=== PATIENT | male | born 1995 | race Caucasian/White ===

== ENCOUNTER → 2016-09-06 | Outpatient (CLI) | payer BC ==
[~2016-09-06] MED LIST: CALC0.2510 PO; KPH PO; MAGNESIUM PO; MULT-1030 PO; OYST500T47 PO
[2016-09-06 14:07] LABS: PHOSPHORUS 1.2 mg/dl (2.5-4.9)
== END | disposition home or self-care (01) ==
LOC: C.LAB1850 11:42
PROVIDERS: ATTEND Internal Medicine Endocrinology, Diabetes & Metabolism
DX: E83.31 Familial hypophosphatemia (principal)

== ENCOUNTER 2016-09-23 16:26 | Emergency (ER) | payer BC ==
[~2016-09-23] VITALS: Ht 170.2 cm; Wt 71.9 kg
[2016-09-23 16:35] VITALS: TEMP 36.4; Ht 170.2 cm; Wt 71.9 kg
[2016-09-23] MEDS ORDERED: SODIUM CHLORIDE 0.9% 1000ML 1,000 ML IV ONE (16:48)
[2016-09-23] MEDS ORDERED: SODIUM CHLORIDE 0.9% 1000ML 1,000 ML IV STA (16:48)
[2016-09-23] MEDS ORDERED: CALC0.2510 PO (16:58)
[2016-09-23] MEDS ORDERED: MULT-1030 PO (16:58)
[2016-09-23] MEDS ORDERED: KPH PO (16:58)
--- NOTE | 2016-09-23 17:00 | EMERGENCY ROOM VISIT NOTE ---
History Report prepared by Lisandro: Julia Vale Under the Supervision of: Dr. Steve Mansfield M.D. First contact with patient: 16:41 Chief Complaint: PALPITATIONS Stated Complaint: HEART PALPATATIONS, ABD PAIN History of Present Illness The patient is a 21 year old male who presents to the Emergency Room with complaints of worsening palpitations that started 2-3 weeks ago. The patient states that over the last couple days, the palpitations have been waking him up from sleep at night, which is what caused him to come into the ED today. He states that he woke up this morning with the palpitations along with chest discomfort. He was also experiencing abdominal pain this morning along with an episode of diarrhea. The abdominal pain subsided, but then he experienced an episode of yellow mucous in his stool and the abdominal pain returned. He states that the abdominal pain radiated into his chest and left shoulder. He is also experiencing left arm numbness and tingling as well as pain in his left wrist. He states that nothing makes the pain better or worse.The patient states that the left left chest pain, left arm numbness, left shoulder pain, and left wrist pain started 2-3 weeks ago and they all happen intermittently. He has seen cardiology for his symptoms and they did an EKG. They also setup an echocardiogram for the patient as well as a Holter monitor, but he states that his symptoms resolved so he cancelled the appointment. When the symptoms came back, he rescheduled the appointment and they recommended scheduling an appointment with GI because they suspected that his symptoms may be related to the gastroenteritis that the patient experienced about one month ago. He states that he also experiences some shortness of breath when the palpitations wake him up in the middle of the night, which resolves in 15-20 minutes if he gets up and walks around. 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 The patient states that he had serotonin syndrome in 2011 secondary to medications. He states that they ended up "pumping out his system." The patient adds that he was seen at [facility] in July for a caffeine overdose due to drinking too many energy drinks and pre- workout. He states that they "pumped his system" then also. He has decreased his caffeine intake since that event. He denies any recent street drug use. He also denies any recent trauma or injury. He adds that he recently took Kratom, which is a plant from [place], for pain relief but he stopped taking it about one month ago. The patient's girlfriend adds that the patient was recently diagnosed with hyperparathyroidism. He was started on Calcitrol to try to bring his levels down. The patient states that his sister had a UT at 30 and he has a family history of an artery disease and cancer. Source of History: patient, spouse/significant other (girlfriend) Onset: 2-3 weeks ago Position: chest Quality: other (palpitations) Timing: worsening Associated Symptoms: + SOB, + abdominal pain, + chest pain, + numbness ( left arm) Note: left shoulder and wrist pain Review of Systems See HPI for pertinent positives & negatives. A total of 10 systems reviewed and were otherwise negative. 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 Old medical records were reviewed. Nurse's notes were reviewed and I agree with. Family History Cancer Heart disease Social History Smoking Status: Former Smoker Drug Use: none Housing Status: lives with significant other Occupation Status: employed Current/Historical Medications Scheduled Calcitriol (Rocaltrol Cap), 0.25 MCG PO DAILY Multiple Vitamins W/ Minerals (Centrum Men), 1 TAB PO DAILY Potassium Phosphate Monobasic (K-Phos), 500 MG PO QID Allergies Coded Allergies: No Known Allergies (Unverified , 09/23/16) Physical Exam Vital Signs Date Time Temp Pulse Resp B/P Pulse Ox O2 Delivery O2 Flow Rate FiO2 09/23/16 18:53 72 18 109/65 98 Room Air 09/23/16 18:01 69 13 115/58 99 Room Air 09/23/16 17:25 98 Room Air 09/23/16 17:01 73 09/23/16 16:35 36.4 87 18 130/80 97 Room Air Physical Exam General: Well developed well nourished non-ill appearing young male in no acute distress, breathing comfortably on room air. Normal speech HEENT: Normal cephalic atraumatic. Pupils are equal round and reactive to light. Extraocular movements are intact. Oropharynx is pink with moist mucous membranes. No swelling of the mouth lips or tongue. Neck: Supple with a midline trachea. No meningeal signs or stiffness, no JVD or bruits. No Stridor. Chest: Mildly tender in left lower chest. Clear to auscultation bilaterally. No wheezes or rhonchi. No increased work of breathing. Heart: regular rate and rhythm. Abdomen: Soft mildly tender in left upper abdomen, nondistended without rebound guarding or rigidity. Extremities: No cyanosis clubbing or edema. No calf tenderness or assymetry Spine/Back. Non tender to palpation. No CVA tenderness Skin: Good turgor without rashes. Neurologic exam: Cranial nerves two through 12 are intact. Motor and sensation are intact and symmetrical throughout. Medical Decision & Procedures ER Provider Diagnostic Interpretation: X-ray results as stated below per interpretation by me and the radiologist: CHEST ONE VIEW PORTABLE FINDINGS: Mild pulmonary hyperaeration. Subtle nonspecific interstitial prominence. No focal infiltrate. Diaphragms smooth. No evidence for cardiac enlargement. IMPRESSION: Mild pulmonary hyperaeration. Subtle interstitial prominence with no focal infiltrate. Electronically signed by: Ronen Beltran M.D. 09/23/2016 5:13 PM Dictated Date/Time: 09/23/2016 5:12 PM Laboratory Results 09/23/16 17:13 Red Blood Count 5.40, Mean Corpuscular Volume 85.2, Mean Corpuscular Hemoglobin 30.0, Mean Corpuscular Hemoglobin Concent 35.2, Mean Platelet Volume 9.3, Neutrophils (%) (Auto) 65.0, Lymphocytes (%) (Auto) 25.0, Monocytes (%) (Auto) 8.7, Eosinophils (%) (Auto) 1.1, Basophils (%) (Auto) 0.2, Neutrophils # (Auto) 3.68, Lymphocytes # (Auto) 1.41, Monocytes # (Auto) 0.49, Eosinophils # (Auto) 0.06, Basophils # (Auto) 0.01 09/23/16 17:13 Test 09/23/16 17:13 09/23/16 17:22 White Blood Count 5.65 K/uL (4.8-10.8) Red Blood Count 5.40 M/uL (4.7-6.1) Hemoglobin 16.2 g/dL (14.0-18.0) Hematocrit 46.0 % (42-52) Mean Corpuscular Volume 85.2 fL (80-100) Mean Corpuscular Hemoglobin 30.0 pg (25-34) Mean Corpuscular Hemoglobin Concent 35.2 g/dl (32-36) Platelet Count 217 K/uL (130-400) Mean Platelet Volume 9.3 fL (7.4-10.4) Neutrophils (%) (Auto) 65.0 % Lymphocytes (%) (Auto) 25.0 % Monocytes (%) (Auto) 8.7 % Eosinophils (%) (Auto) 1.1 % Basophils (%) (Auto) 0.2 % Neutrophils # (Auto) 3.68 K/uL (1.4-6.5) Lymphocytes # (Auto) 1.41 K/uL (1.2-3.4) Monocytes # (Auto) 0.49 K/uL (0.11-0.59) Eosinophils # (Auto) 0.06 K/uL (0-0.5) Basophils # (Auto) 0.01 K/uL (0-0.2) RDW Standard Deviation 38.7 fL (36.4-46.3) RDW Coefficient of Variation 12.5 % (11.5-14.5) Immature Granulocyte % (Auto) 0.0 % Immature Granulocyte # (Auto) 0.00 K/uL (0.00-0.02) Anion Gap 7.0 mmol/L (3-11) Est Creatinine Clear Calc Drug Dose 170.5 ml/min Estimated GFR () > 150.0 Estimated GFR (Non- 138.9 BUN/Creatinine Ratio 19.3 (10-20) Calcium Level 9.5 mg/dl (8.5-10.1) Phosphorus Level 1.2 mg/dl (2.5-4.9) Magnesium Level 2.1 mg/dl (1.8-2.4) Total Bilirubin 0.6 mg/dl (0.2-1) Direct Bilirubin 0.1 mg/dl (0-0.2) Aspartate Amino Transf (AST/SGOT) 13 U/L (15-37) Alanine Aminotransferase (ALT/SGPT) 25 U/L (12-78) Alkaline Phosphatase 242 U/L (45-117) Total Creatine Kinase 104 U/L (39-308) Creatine Kinase MB 0.6 ng/ml (0.5-3.6) Creatine Kinase MB Ratio 0.6 (0-3.0) Total Protein 7.2 gm/dl (6.4-8.2) Albumin 4.3 gm/dl (3.4-5.0) Lipase 147 U/L (73-393) Bedside D-Dimer 91 ng/mlFEU (0-450) Bedside Troponin I 0.000 ng/ml (0-0.045) Laboratory studies as stated above per my review. Medications Administered Medications (Trade) Dose Ordered Sig/Mayuri Route Start Time Stop Time Status Last Admin Dose Admin Sodium Chloride 1,000 ml @ 999 mls/hr Q1H1M STAT IV 09/23/16 16:48 09/23/16 17:48 DC 09/23/16 17:22 999 MLS/HR Sodium Chloride (Nss 1000ml) 1,000 ml @ 150 mls/hr Q6H40M ONCE IV 09/23/16 16:48 09/23/16 23:27 09/23/16 18:04 150 MLS/HR ECG Indication: chest pain Rate (beats per minute): 69 Rhythm: normal sinus (with SA) Findings: no acute ischemic change, other (normal intervals) Comparison ECG Date: no prior available Change: Repeat EKG: normal sinus rhythm, rate of 67, no acute ischemic changes, no ectopy, no change from first EKG on 09/23/2016 ED Course 1642: Past medical records reviewed. The patient was evaluated in room C10, and a complete history and physical examination were performed. 1648: Sodium Chloride 1000 ml @ 150 mls/hr IV, Sodium Chloride 1000 ml @ 999 mls /hr IV 1744: I reassessed the patient. He is resting comfortably. 183: Discussed patient's case with Dr. Adam - Endocrinology. He recommending telling the patient to increase his phosphorus and he will recheck it in a week. 1844: I reassessed the patient and updated him on my conversation with Dr. Adam. 1908: Upon reevaluation, the patient is doing well. I discussed the results and treatment plan with the patient and his girlfriend. They verbalized agreement of the treatment plan. The patient was discharged home. Medical Decision Differentials include, but are not limited to; acute coronary syndrome, arrhythmia, PE, infection, pneumothorax, electrolyte or metabolic abnormality. This patient comes in complaining of chest pain. He also has a genetic metabolic disorder. IV access was established and he was hydrated with IV normal saline. EKG was obtained which does not show acute coronary syndrome or arrhythmia. Chest x-ray was also obtained as well as multiple blood work and electrolytes. He was reassessed frequently. He has remained stable. A second EKG shows no change when compared to EKG #1 and there are no ischemic changes. His chest x-ray was unremarkable and he has no evidence to suggest congestive heart failure, pneumonia, or pneumothorax. He has no acute electrolyte or metabolic abnormalities was with exception of a low phosphorus of 1.2, this is baseline compared to his previous about a month ago. I did discuss with Dr. Adam, his sales representative meats, he recommended that he increase his potassium phosphate from 500 mg 4 times a day to 1000 mg 4 times a day and have this rechecked in 1 week. Talking to the patient has girlfriend, he's had these symptoms for several weeks and is supposed to be seen by [employer] this coming week as well as his regular doctor this coming week. I encouraged him to keep these appointments. I think his symptoms are unlikely related to his low phosphorus acutely. I encouraged him to return to ER if: increasing pain, shortness of breath, worsening of symptoms, any new problems concerns. He was happy with plan and discharged to home. Consults Time Called: 1829 Consulting Physician: Dr. Adam - Endocrinology Returned Call: [phone] Discussed patient's case with Dr. Adam - Endocrinology. He recommending telling the patient to increase his phosphorus and he will recheck it in a week. Impression Primary Impression: Left sided chest pain Additional Impression: Hypophosphatemia Scribe Attestation The scribe's documentation has been prepared under my direction and personally reviewed by me in its entirety. I confirm that the note above accurately reflects all work, treatment, procedures, and medical decision making performed by me. Departure Information Dispostion Home / Self-Care Referrals No Doctor, Assigned (PCP) Forms HOME CARE DOCUMENTATION FORM, IMPORTANT VISIT INFORMATION, WORK / SCHOOL INSTRUCTIONS Patient Instructions My [facility] [employer] Additional Instructions Rest Drink plenty of fluids Increase your potassium phosphate from 500 mg 4 times a day to 1000 mg 4 times a day Have your blood work rechecked in 1 week for a potassium, phosphorus, calcium Return if: increasing pain, worsening of symptoms, fever or chills, shortness of breath, any new problems or concerns Keep your appointment with your regular doctor and your [employer] this week Problem Qualifiers
--- NOTE | 2016-09-23 17:14 | DIAGNOSTIC IMAGING REPORT ---
CHEST ONE VIEW PORTABLE CLINICAL HISTORY: CHEST PAIN dyspnea COMPARISON STUDY: No previous studies for comparison. FINDINGS: Mild pulmonary hyperaeration. Subtle nonspecific interstitial prominence. No focal infiltrate. Diaphragms smooth. No evidence for cardiac enlargement. IMPRESSION: Mild pulmonary hyperaeration. Subtle interstitial prominence with no focal infiltrate. Electronically signed by: Ronen Beltran M.D. 09/23/2016 5:13 PM Dictated Date/Time: 09/23/2016 5:12 PM
[2016-09-23 17:25] LABS: BASO % 0.2 %; BASO ABS # 0.01 K/uL (0-0.2); COMPLETE YES; EOS % 1.1 %; LYMPH ABS # 1.41 K/uL (1.2-3.4); MEAN CELL VOLUME 85.2 fL (80-100); MEAN CORPUSCULAR HGB CONC 35.2 g/dl (32-36); MEAN PLATELET VOLUME 9.3 fL (7.4-10.4); MONO % 8.7 %; PLATELET COUNT 217 K/uL (130-400); WHITE BLOOD COUNT 5.65 K/uL (4.8-10.8)
[2016-09-23 17:42] LABS: ALT/SGPT 25 U/L (12-78); AST/SGOT 13 U/L (15-37); BLOOD UREA NITROGEN 12 mg/dl (7-18); BUN/CREATININE RATIO 19.3 (10-20); CALCIUM 9.5 mg/dl (8.5-10.1); CARBON DIOXIDE 25 mmol/L (21-32); CHLORIDE 111 mmol/L (98-107); CREATININE 0.63 mg/dl (0.60-1.40); GLUCOSE 92 mg/dl (70-99); MAGNESIUM 2.1 mg/dl (1.8-2.4); SODIUM 143 mmol/L (136-145)
[2016-09-23 18:03] LABS: ALKALINE PHOSPHATASE 242 U/L (45-117); CKMB/CK RATIO 0.6 (0-3.0); PHOSPHORUS 1.2 mg/dl (2.5-4.9)
[2016-09-23 18:53] VITALS: BP 109/65; PULSE 72; O2SAT 98
== END 2016-09-23 19:53 | disposition home or self-care (01) ==
LOC: C.EDB 16:28 → C.EDC 19:53
DX: R07.9 Chest pain, unspecified (principal); E83.39 Other disorders of phosphorus metabolism; Z82.49 Family history of ischemic heart disease and other diseases of the circulatory system; Z87.891 Personal history of nicotine dependence; Z80.9 Family history of malignant neoplasm, unspecified; Z79.899 Other long term (current) drug therapy

== ENCOUNTER 2017-03-23 13:50 | Inpatient (IN) | payer BC ==
[~2017-03-23] VITALS: Ht 167.6 cm; Wt 69.5 kg
[~2017-03-23 13:50] MED LIST changes: -MAGNESIUM PO; -OYST500T47 PO
[2017-03-23 14:23] LABS: BASO % 0.1 %; BASO ABS # 0.01 K/uL (0-0.2); COMPLETE YES; EOS % 0.4 %; HEMATOCRIT 44.2 % (42-52); IG% 0.3 %; LYMPH % 29.2 %; LYMPH ABS # 2.29 K/uL (1.2-3.4); MEAN CELL VOLUME 87.4 fL (80-100); MEAN CORPUSCULAR HEMOGLOBIN 30.2 pg (25-34); MEAN CORPUSCULAR HGB CONC 34.6 g/dl (32-36); MEAN PLATELET VOLUME 9.5 fL (7.4-10.4); MONO % 9.2 %; NEUT % 60.8 %; PLATELET COUNT 169 K/uL (130-400); RED BLOOD COUNT 5.06 M/uL (4.7-6.1); WHITE BLOOD COUNT 7.83 K/uL (4.8-10.8)
[2017-03-23 14:24] LABS: ISTAT CREATININE 0.7 mg/dl (0.6-1.3); ISTAT IONIZED CALCIUM 0.89 mmol/l (1.12-1.32)
[2017-03-23] MEDS ORDERED: CALCIUM GLUCONATE 10% 10 ML VIAL IV STA (14:29)
[2017-03-23 14:41] LABS: ALT/SGPT 23 U/L (12-78); AST/SGOT 16 U/L (15-37); BLOOD UREA NITROGEN 10 mg/dl (7-18); BUN/CREATININE RATIO 12.3 (10-20); CARBON DIOXIDE 31 mmol/L (21-32); CHLORIDE 103 mmol/L (98-107); CREATININE 0.82 mg/dl (0.60-1.40); GLUCOSE 86 mg/dl (70-99); INR 1.1 (0.9-1.1); MAGNESIUM 1.5 mg/dl (1.8-2.4); PARTIAL THROMBOPLASTIN RATIO 1.1; POTASSIUM 3.2 mmol/L (3.5-5.1); SODIUM 141 mmol/L (136-145)
[2017-03-23] MEDS ORDERED: MAGNESIUM SULFATE 1GM / D5W 1 GM BAG IV STA (14:46)
[2017-03-23] MEDS ORDERED: POTASSIUM CHLORIDE 10 MEQ TABCR PO STA (14:46)
[2017-03-23] MEDS ORDERED: OYST500T47 PO (14:51)
[2017-03-23] MEDS ORDERED: MAGNESIUM PO (14:52)
[2017-03-23 14:53] LABS: ALKALINE PHOSPHATASE 206 U/L (45-117); PHOSPHORUS 1.5 mg/dl (2.5-4.9); THYROID STIMULATING HORMONE 0.357 uIu/ml (0.300-4.500)
[2017-03-23] MEDS ORDERED: NON-FORMULARY MEDICATION IV STA (14:59)
[2017-03-23] MEDS ORDERED: POT PHOSPHATE MONOBASIC W/ SOD TAB PO STA (14:59)
[2017-03-23] MEDS: CALCIUM GLUCONATE 10% 11,000 MG in SODIUM CHLORIDE 0.9% 1000ML 1,000 ML IV SCH (15:15)
[2017-03-23] MEDS ORDERED: ONDANSETRON INJ 2 MG/ML 2 ML VIAL IV PRN (15:45)
[2017-03-23] MEDS ORDERED: ACETAMINOPHEN 325 MG TAB PO PRN (15:45)
[2017-03-23] MEDS ORDERED: MAGNESIUM HYDROXIDE SUSP 30 ML UDC PO PRN (15:45)
[2017-03-23] MEDS ORDERED: CALCITRIOL 0.25 MCG CAP PO ONE (16:00)
[2017-03-23] MEDS ORDERED: LORAZEPAM 0.5 MG TAB PO PRN (16:00)
--- NOTE | 2017-03-23 16:10 | History and Physical ---
History & Physical Date & Time of Service: Mar 23, 2017 at 15:55 Chief Complaint: Low Calcium, Hungry Bone Syndrome Primary Care Physician: Darian Hameed II MD History of Present Illness Source: patient Mr. Redd is a 21 year old man here for symptomatic hypocalcemia following parathyroidectomy 03/21 at [facility]. He has a history of Familial x-linked hypophosphatemic vitamin D refractory rickets which his mother also has and she also recently had a parathyroidectomy. Last night he began to develop symptoms that worsened until today when he presented to the ED. His symptoms included tetany in his hands, numbness in his upper and lower extremities, stiff facial muscles and numb tongue which interfered with his speech, and full body muscle spasm. He has had some nausea and little appetite since surgery but no emesis. Past Medical/Surgical History Medical Problems: (1) Familial X-linked hypophosphatemic vitamin D refractory rickets Status: Chronic Family History Cancer Heart disease Social History Smoking Status: Light Tobacco Smoker (occasional cigar) Smokeless Tobacco Use: No Alcohol Use: occasionally Drug Use: none Marital Status: in relationship Housing status: lives with family Occupational Status: employed Allergies Coded Allergies: No Known Allergies (Unverified , 03/23/17) Home Medications Scheduled Calcitriol (Rocaltrol Cap), 0.25 MCG PO DAILY Multiple Vitamins W/ Minerals (Centrum Men), 1 TAB PO DAILY Oyster Shell (Calcium), 1,000 MG PO 5XD Potassium Phosphate Monobasic (K-Phos), 500 MG PO QID [Magnesium], 1 TAB PO DAILY Review of Systems ROS Constitutional: no chills, aches, sweats or fever Respiratory: no sob,cough, sputum, or wheezing Cardiac: no chest pain, palpitations, edema, orthopnea or lightheadedness GI: no abdominal pain, diarrhea or constipation : no dysuria or hesitancy Extremities: see HPI Skin: no rash Physical Exam Vital Signs Date Time Temp Pulse Resp B/P (MAP) Pulse Ox O2 Delivery O2 Flow Rate FiO2 03/23/17 15:30 81 18 129/82 98 Room Air 03/23/17 15:00 73 18 127/73 98 Room Air 03/23/17 14:26 79 20 128/76 100 Room Air 03/23/17 14:17 84 03/23/17 14:15 100 Room Air 03/23/17 13:54 36.8 90 20 127/79 93 Room Air General: no distress Eyes: normal inspection, PERLL Respiratory: chest non tender, clear to auscultation, normal breath sounds, no respiratory distress, no accessory muscle use Cardiac: regular rate and rhythm, no rub or gallop, no murmur, no edema, no jvd GI/: active bowel sounds, no abd pain or tenderness, soft, non distended Extremities: normal range of motion, normal strength, non tender Neuro/Psych: alert and oriented x 3, normal mood and affect, positive Chevostick sign, 2+ reflexes Skin: normal color, dry Diagnostics Laboratory Results Results Past 24 Hours Test 03/23/17 14:05 03/23/17 14:12 03/23/17 14:19 Range/Units White Blood Count 7.83 4.8-10.8 K/uL Red Blood Count 5.06 4.7-6.1 M/uL Hemoglobin 15.3 14.0-18.0 g/dL Hematocrit 44.2 42-52 % Mean Corpuscular Volume 87.4 80-100 fL Mean Corpuscular Hemoglobin 30.2 25-34 pg Mean Corpuscular Hemoglobin Concent 34.6 32-36 g/dl Platelet Count 169 130-400 K/uL Mean Platelet Volume 9.5 7.4-10.4 fL Neutrophils (%) (Auto) 60.8 % Lymphocytes (%) (Auto) 29.2 % Monocytes (%) (Auto) 9.2 % Eosinophils (%) (Auto) 0.4 % Basophils (%) (Auto) 0.1 % Neutrophils # (Auto) 4.76 1.4-6.5 K/uL Lymphocytes # (Auto) 2.29 1.2-3.4 K/uL Monocytes # (Auto) 0.72 0.11-0.59 K/uL Eosinophils # (Auto) 0.03 0-0.5 K/uL Basophils # (Auto) 0.01 0-0.2 K/uL RDW Standard Deviation 41.3 36.4-46.3 fL RDW Coefficient of Variation 12.9 11.5-14.5 % Immature Granulocyte % (Auto) 0.3 % Immature Granulocyte # (Auto) 0.02 0.00-0.02 K/uL Prothrombin Time 12.0 9.0-12.0 SECONDS Prothromb Time International Ratio 1.1 0.9-1.1 Activated Partial Thromboplast Time 28.6 21.0-31.0 SECONDS Partial Thromboplastin Ratio 1.1 Sodium Level 141 136-145 mmol/L Potassium Level 3.2 3.5-5.1 mmol/L Chloride Level 103 98-107 mmol/L Carbon Dioxide Level 31 21-32 mmol/L Anion Gap 8.0 21.0 16-25 mmol/L Blood Urea Nitrogen 10 7-18 mg/dl Creatinine 0.82 0.60-1.40 mg/dl Est Creatinine Clear Calc Drug Dose 126.4 ml/min Estimated GFR () 144.5 Estimated GFR (Non- 124.6 BUN/Creatinine Ratio 12.3 10-20 Random Glucose 86 70-99 mg/dl Calcium Level 7.0 8.5-10.1 mg/dl Phosphorus Level 1.5 2.5-4.9 mg/dl Magnesium Level 1.5 1.8-2.4 mg/dl Total Bilirubin 0.6 0.2-1 mg/dl Direct Bilirubin 0.1 0-0.2 mg/dl Aspartate Amino Transf (AST/SGOT) 16 15-37 U/L Alanine Aminotransferase (ALT/SGPT) 23 12-78 U/L Alkaline Phosphatase 206 45-117 U/L Troponin I < 0.015 0-0.045 ng/ml Total Protein 7.0 6.4-8.2 gm/dl Albumin 4.0 3.4-5.0 gm/dl Lipase 133 73-393 U/L Thyroid Stimulating Hormone (TSH) 0.357 0.300-4.500 uIu/ml Bedside Hemoglobin 16.0 14.0-18.0 g/dl Bedside Hematocrit 47 42-52 % Bedside Sodium 143 135-144 mEq/L Bedside Potassium 3.2 3.3-5.0 mEq/L Bedside Chloride 98 101-112 mEq/L Bedside Total CO2 28 24-31 mEq/l Bedside Blood Urea Nitrogen 10 7-18 mg/dl Bedside Creatinine 0.7 0.6-1.3 mg/dl Bedside Glucose (other) 86 70-99 mg/dl Bedside Ionized Calcium (Priscila) 0.89 1.12-1.32 mmol/l Ionized Calcium 0.91 1.12-1.32 mmol/l Parathyroid Hormone (Intact) 7.0 11.1-79.5 pg/mL Normal EKG Impression Assessment and Plan Mr. Redd is a 21 year old man here for symptomatic hypocalcemia following parathyroidectomy 03/21 at [facility]. He has a history of Familial x-linked hypophosphatemic vitamin D refractory rickets which his mother also has and she also recently had a parathyroidectomy. Last night he began to develop symptoms that worsened until today when he presented to the ED. His symptoms included tetany in his hands, numbness in his upper and lower extremities, stiff facial muscles and numb tongue which interfered with his speech, and full body muscle spasm. 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 Adam - recommendations for calcitriol and Kphos replacements followed - continue Ca gluconate gtt - serial electrolytes - potassium, phosphorous, magnesium repleated GERD - maalox prn Anxiety - prn ativan Full code DVT prophylaxis - enoxaprin DELIVERY RECRUITER Physician Supervision Note: I interviewed and examined the patient. Discussed with Vivi Purvis DELIVERY RECRUITER and agree with findings and plan as documented in the note. Any exceptions or clarifications are listed here: None As per excellent summary above the patient has recently had a parathyroidectomy subsequently has had postoperative marked symptomatic hypocalcemia. Vivi Purvis did speak with Dr. Roman Adam we will replete his electrolytes abnormalities and hopefully have the patient home in a short duration I visited the patient is feeling much better after his calcium infusion his vital signs were stable He is a incision on his anterior neck looks to have Dermabond and Steri-Strips is not erythematous or fluctuant cardiac exam is regular lungs are clear neurologically is awake alert appropriate Hypocalcemia pain is anemia of phosphatemia after parathyroidectomy replete and follow electrolytes Documented By: Walter Candelario Level of Care Telemetry Advanced Directives Existing Advance Directive: No Existing Living Will: No Existing Power of Field Operations Farm Manager: No Existing Health Care Proxy: No Resuscitation Status FULL RESUSCITATION VTE Prophylaxis VTE Risk Assessment Done? Y/N: Yes Risk Level: Moderate Given or contraindicated: Enoxaparin (Lovenox)SQ
[2017-03-23 16:13] VITALS: O2SAT 98
[2017-03-23 16:20] VITALS: BP 130/80; PULSE 72; TEMP 36.8; O2SAT 99
[2017-03-23] MEDS ORDERED: CALCIUM GLUCONATE 10% 1,000 MG in SODIUM CHLORIDE 0.9% 50ML 50 ML IV ONE (16:30)
[2017-03-23 16:54] LABS: URINE APPEARANCE CLEAR (CLEAR); URINE BILIRUBIN NEG (NEG); URINE COLOR YELLOW; URINE NITRITE NEG (NEG); URINE SPECIFIC GRAVITY 1.013 (1.000-1.030); UROBILINOGEN NEG (NEG)
[2017-03-23 16:58] LABS: MANUAL MICROSCOPIC REQUIRED? NO; REVIEW REQ? NO
--- NOTE | 2017-03-23 18:00 | EMERGENCY ROOM VISIT NOTE ---
History Report prepared by Lisandro: Trey Tang Under the Supervision of: Dr. Aj Parra M.D. First contact with patient: 14:01 Chief Complaint: ABNORMAL LABS Stated Complaint: LOW CALCIUM, HUNGRY BONE SYNDROME History of Present Illness The patient is a 21 year old male who presents to the Emergency Room with complaints of hypocalcemia that began recently. The patient has a past medical history of X-linked hypophosphatemic vitamin D refractory rickets. Two days ago , Dr. Driver from [facility] removed 2.5 glands removed of the three that he had around his thyroid. Prior to the procedure, his parathyroid levels were 500. Afterward they dropped to 28. He then began having muscle stiffness in his bilateral hands and legs. Also, he is having some facial numbness. His mother called Dr. 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 Pt denies LOC, headache, fevers, chills, diaphoresis, visual changes, neck pain, chest pain, breathing difficulties, nausea, vomiting, abdominal pain, back pain, melena, hematochezia , urinary symptoms, numbness, weakness, lymphadenopathy, rash, or other complaints. He takes multiple supplements for his thyroid dysfunction. Source of History: patient Onset: recently Position: other (Global) Symptom Intensity: moderate Quality: other (Hypocalcemia) Timing: constant Associated Symptoms: + numbness (to his face) Note: He is having cramping and muscle spasms to his bilateral upper and lower extremities. Review of Systems See HPI for pertinent positives and negatives. A total of ten systems were reviewed and were otherwise negative. 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 (2) Hypocalcemia Family History Cancer Heart disease Social History Smoking Status: Current Every Day Smoker Alcohol Use: none Drug Use: none Housing Status: lives with significant other Occupation Status: employed Current/Historical Medications Scheduled Calcitriol (Rocaltrol Cap), 0.25 MCG PO DAILY Multiple Vitamins W/ Minerals (Centrum Men), 1 TAB PO DAILY Oyster Shell (Calcium), 1,000 MG PO 5XD Potassium Phosphate Monobasic (K-Phos), 500 MG PO QID [Magnesium], 1 TAB PO DAILY Allergies Coded Allergies: No Known Allergies (Unverified , 03/23/17) Physical Exam Vital Signs Date Time Temp Pulse Resp B/P (MAP) Pulse Ox O2 Delivery O2 Flow Rate FiO2 03/23/17 15:30 81 18 129/82 98 Room Air 03/23/17 15:00 73 18 127/73 98 Room Air 03/23/17 14:26 79 20 128/76 100 Room Air 03/23/17 14:17 84 03/23/17 14:15 100 Room Air 03/23/17 13:54 36.8 90 20 127/79 93 Room Air Physical Exam GENERAL: Awake, alert, well-appearing, in no distress HENT: Normocephalic, atraumatic. Oropharynx unremarkable. EYES: Normal conjunctiva. Sclera non-icteric. NECK: Supple. No nuchal rigidity. FROM. No JVD. Incision to the anterior neck that is clean, dry, and intact. RESPIRATORY: Clear to auscultation. CARDIAC: Regular rate, normal rhythm. Extremities warm and well perfused. Pulses equal. ABDOMEN: Soft, non-distended. No tenderness to palpation. No rebound or guarding. No masses. RECTAL: Deferred. MUSCULOSKELETAL: Chest examination reveals no tenderness. The back is symmetrical on inspection without obvious abnormality. There is no CVA tenderness to palpation. No joint edema. UPPER EXTREMITIES: [place] bilaterally. LOWER EXTREMITIES: Calves are equal size bilaterally and non-tender. No edema. No discoloration. NEURO: Normal sensorium. No sensory or motor deficits noted. Positive Chvostek' s sign. SKIN: No rash or jaundice noted. Medical Decision & Procedures Laboratory Results 03/23/17 14:05 Red Blood Count 5.06, Mean Corpuscular Volume 87.4, Mean Corpuscular Hemoglobin 30.2, Mean Corpuscular Hemoglobin Concent 34.6, Mean Platelet Volume 9.5, Neutrophils (%) (Auto) 60.8, Lymphocytes (%) (Auto) 29.2, Monocytes (%) (Auto) 9.2, Eosinophils (%) (Auto) 0.4, Basophils (%) (Auto) 0.1, Neutrophils # (Auto) 4.76, Lymphocytes # (Auto) 2.29, Monocytes # (Auto) 0.72, Eosinophils # (Auto) 0.03, Basophils # (Auto) 0.01 Test 03/23/17 14:05 03/23/17 14:12 03/23/17 14:19 White Blood Count 7.83 K/uL (4.8-10.8) Red Blood Count 5.06 M/uL (4.7-6.1) Hemoglobin 15.3 g/dL (14.0-18.0) Hematocrit 44.2 % (42-52) Mean Corpuscular Volume 87.4 fL (80-100) Mean Corpuscular Hemoglobin 30.2 pg (25-34) Mean Corpuscular Hemoglobin Concent 34.6 g/dl (32-36) Platelet Count 169 K/uL (130-400) Mean Platelet Volume 9.5 fL (7.4-10.4) Neutrophils (%) (Auto) 60.8 % Lymphocytes (%) (Auto) 29.2 % Monocytes (%) (Auto) 9.2 % Eosinophils (%) (Auto) 0.4 % Basophils (%) (Auto) 0.1 % Neutrophils # (Auto) 4.76 K/uL (1.4-6.5) Lymphocytes # (Auto) 2.29 K/uL (1.2-3.4) Monocytes # (Auto) 0.72 K/uL (0.11-0.59) Eosinophils # (Auto) 0.03 K/uL (0-0.5) Basophils # (Auto) 0.01 K/uL (0-0.2) RDW Standard Deviation 41.3 fL (36.4-46.3) RDW Coefficient of Variation 12.9 % (11.5-14.5) Immature Granulocyte % (Auto) 0.3 % Immature Granulocyte # (Auto) 0.02 K/uL (0.00-0.02) Prothrombin Time 12.0 SECONDS (9.0-12.0) Prothromb Time International Ratio 1.1 (0.9-1.1) Activated Partial Thromboplast Time 28.6 SECONDS (21.0-31.0) Partial Thromboplastin Ratio 1.1 Est Creatinine Clear Calc Drug Dose 126.4 ml/min Phosphorus Level 1.5 mg/dl (2.5-4.9) Total Bilirubin 0.6 mg/dl (0.2-1) Direct Bilirubin 0.1 mg/dl (0-0.2) Aspartate Amino Transf (AST/SGOT) 16 U/L (15-37) Alanine Aminotransferase (ALT/SGPT) 23 U/L (12-78) Alkaline Phosphatase 206 U/L (45-117) Troponin I < 0.015 ng/ml (0-0.045) Total Protein 7.0 gm/dl (6.4-8.2) Albumin 4.0 gm/dl (3.4-5.0) Lipase 133 U/L (73-393) Thyroid Stimulating Hormone (TSH) 0.357 uIu/ml (0.300-4.500) Bedside Hemoglobin 16.0 g/dl (14.0-18.0) Bedside Hematocrit 47 % (42-52) Bedside Sodium 143 mEq/L (135-144) Bedside Potassium 3.2 mEq/L (3.3-5.0) Bedside Chloride 98 mEq/L (101-112) Bedside Total CO2 28 mEq/l (24-31) Bedside Blood Urea Nitrogen 10 mg/dl (7-18) Bedside Creatinine 0.7 mg/dl (0.6-1.3) Bedside Glucose (other) 86 mg/dl (70-99) Bedside Ionized Calcium (Priscila) 0.89 mmol/l (1.12-1.32) Ionized Calcium 0.91 mmol/l (1.12-1.32) Parathyroid Hormone (Intact) 7.0 pg/mL (11.1-79.5) Laboratory results reviewed by me Medications Administered Medications (Trade) Dose Ordered Sig/Mayuri Route Start Time Stop Time Status Last Admin Dose Admin Potassium Chloride (Klor-Con M10) 40 meq NOW STAT PO 03/23/17 14:46 03/23/17 14:47 DC 03/23/17 14:52 40 MEQ Magnesium Sulfate (Magnesium Sulfate) 2 gm NOW STAT IV 03/23/17 14:46 03/23/17 14:47 DC 03/23/17 14:51 2 GM Potassium/ Phosphorus/Sodium (Phospha 250 Neutral 155-852-130 Mg) 2 tab NOW STAT PO 03/23/17 14:59 03/23/17 15:01 DC 03/23/17 14:59 2 TAB Calcium Gluconate 48019 mg/Sodium Chloride 1,110 ml @ 50 mls/hr [id number] IV 03/23/17 15:15 04/22/17 15:14 03/23/17 15:15 50 MLS/HR ECG Indication: other (Abnormal laboratory results) Rate (beats per minute): 83 Rhythm: normal sinus Findings: no acute ischemic change, no ectopy, other (Normal intervals) ED Course 1401: The patient was evaluated in room B1. A complete history and physical exam was performed. 1446: Ordered Magnesium Sulfate 2 gm IV, Potassium Chloride 40 meq PO 1456: Upon reexamination, the patient was resting. I discussed the test results and treatment plan with him. I spoke with Dr. Candelario of [facility] as well. We discussed the patient's case. The patient will be evaluated by him for further management. 1459: Ordered Non-Formulary Medication 1 ea IV, Potassium/Phosphorus/Sodium 2 tab PO 1515: Ordered Calcium Gluconate 11,000 mg/Sodium Chloride 1110 ml @ 50 mls/hr Protocol IV Medical Decision Triage Nursing notes reviewed. The patient's presentation and history were concerning for probable elective lead abnormalities. Etiologies such as electrolyte abnormalities, Metabolic, infection, hypo/ hyperglycemia, cardiac sources, intracerebral event, toxicologic, neurologic, as well as others were entertained. The patient was evaluated. He had tetany spasms as well as a positive Chvostek sign. An i-STAT was performed and is found to have hypocalcemia and hypokalemia. 1 g of IV calcium gluconate was ordered as a drip. The patient was given oral potassium. ECG was unremarkable. The patient was actually feeling better on reassessment. His laboratory studies revealed hypomagnesemia as well as hypophosphatemia. The patient was given Neutra-Phos and 2 g of IV magnesium. He was started on IV calcium gluconate drip. He is very symptomatic from his hypocalcemia and other likely abnormalities despite taking significant amounts of replacements as an outpatient. He will need further evaluation and management in the hospital. Consultation was made with the [facility] service. The patient was evaluated in the Emergency Room for further management. Medication Reconcilliation Current Medication List: was personally reviewed by me Blood Pressure Screening Patient's blood pressure: Normal blood pressure Blood pressure disposition: Did not require urgent referral Impression Primary Impression: Hypocalcemia Additional Impressions: Hypomagnesemia Hypokalemia Scribe Attestation The scribe's documentation has been prepared under my direction and personally reviewed by me in its entirety. I confirm that the note above accurately reflects all work, treatment, procedures, and medical decision making performed by me. Departure Information Dispostion Being Evaluated By Hospitalist Referrals No Doctor, Assigned (PCP) Patient Instructions My [facility] Problem Qualifiers
[2017-03-23 18:23] LABS: BUN/CREATININE RATIO 12.1 (10-20); CALCIUM 7.6 mg/dl (8.5-10.1); CREATININE 0.79 mg/dl (0.60-1.40); POTASSIUM 3.4 mmol/L (3.5-5.1)
[2017-03-23] MEDS: POT PHOSPHATE MONOBASIC W/ SOD TAB PO SCH ×2 (18:38→21:32)
[2017-03-23] MEDS: ENOXAPARIN 40 MG/0.4 ML SYR SC SCH (18:39)
[2017-03-23] MEDS ORDERED: POTASSIUM CHLORIDE 10 MEQ TABCR PO ONE (19:30)
[2017-03-23] MEDS ORDERED: CALCIUM GLUCONATE 10% 1,000 MG in SODIUM CHLORIDE 0.9% 50ML 50 ML IV PRN (19:45)
[2017-03-23 20:08] VITALS: BP 116/74; PULSE 76; TEMP 36.5; O2SAT 99
[2017-03-23] MEDS: CALCITRIOL 0.25 MCG CAP PO SCH (21:32)
[2017-03-23 22:02] VITALS: BP 116/74; PULSE 76; TEMP 36.5; Ht 167.6 cm; Wt 69.5 kg
[2017-03-23 23:42] LABS: BUN/CREATININE RATIO 16.1 (10-20); CALCIUM 7.8 mg/dl (8.5-10.1); CREATININE 0.77 mg/dl (0.60-1.40); POTASSIUM 3.9 mmol/L (3.5-5.1)
[2017-03-23 23:56] VITALS: BP 120/73; PULSE 72; TEMP 36.4; O2SAT 97
[2017-03-24 04:28] LABS: BLOOD UREA NITROGEN 12 mg/dl (7-18); BUN/CREATININE RATIO 20.4 (10-20); CALCIUM 6.9 mg/dl (8.5-10.1); CARBON DIOXIDE 29 mmol/L (21-32); CHLORIDE 107 mmol/L (98-107); CREATININE 0.61 mg/dl (0.60-1.40); GLUCOSE 84 mg/dl (70-99); MAGNESIUM 1.5 mg/dl (1.8-2.4); POTASSIUM 4.1 mmol/L (3.5-5.1); SODIUM 142 mmol/L (136-145)
[2017-03-24 04:38] VITALS: BP 110/69; PULSE 74; TEMP 36.5; O2SAT 98
[2017-03-24] MEDS ORDERED: NURSING VERBAL MED ORDER ONE (04:45)
[2017-03-24] MEDS ORDERED: MAGNESIUM OXIDE 400 MG TAB PO STA ×2 (04:54→18:23)
[2017-03-24 07:21] VITALS: BP 107/68; PULSE 69; TEMP 36.9; O2SAT 97
[2017-03-24 07:44] LABS: BLOOD UREA NITROGEN 11 mg/dl (7-18); BUN/CREATININE RATIO 20.4 (10-20); CARBON DIOXIDE 27 mmol/L (21-32); CHLORIDE 107 mmol/L (98-107); CREATININE 0.56 mg/dl (0.60-1.40); GLUCOSE 79 mg/dl (70-99); SODIUM 141 mmol/L (136-145)
[2017-03-24] MEDS: POT PHOSPHATE MONOBASIC W/ SOD TAB PO SCH ×4 (08:09→20:44)
[2017-03-24] MEDS: CALCITRIOL 0.25 MCG CAP PO SCH ×2 (08:09→20:44)
[2017-03-24] MEDS ORDERED: PAROXETINE 20 MG TAB PO ONE (11:00)
[2017-03-24 11:29] LABS: CALCIUM 7.8 mg/dl (8.5-10.1); CREATININE 0.77 mg/dl (0.60-1.40); MAGNESIUM 1.7 mg/dl (1.8-2.4); POTASSIUM 3.9 mmol/L (3.5-5.1)
[2017-03-24 11:34] VITALS: BP 123/82; PULSE 75; TEMP 36.6; O2SAT 98
[2017-03-24 11:37] LABS: PHOSPHORUS 2.8 mg/dl (2.5-4.9)
[2017-03-24] MEDS ORDERED: CALCIUM CARBONATE 500 MG CHEWABLE PO ONE (12:24)
[2017-03-24] MEDS ORDERED: MAGNESIUM SULFATE 1GM / D5W 1 GM in PREMIXED IN D5W 100 ML IV STA (12:24)
[2017-03-24] MEDS: CALCIUM GLUCONATE 10% 11,000 MG in SODIUM CHLORIDE 0.9% 1000ML 1,000 ML IV SCH (13:34)
--- NOTE | 2017-03-24 13:43 | Family Medicine Progress Note ---
Progress Note Date of Service Mar 24, 2017. Subjective Pt evaluation today including: conversation w/ patient, physical exam, chart review, lab review, review of studies, review of inpatient medication list Pain: intermittent LE spasms PO Intake: adequate Voiding: no voiding problems Constitutional: No fever, No chills ENT: No sore throat, No trouble swallowing Respiratory: No cough, No sputum, No shortness of breath Cardiovascular: No chest pain, No edema, No palpitations Abdomen: No pain, No nausea, No vomiting Musculoskeletal: + muscle pain (intermittent spasms(improved)) Male : No dysuria, No urinary frequency Skin: No rash, No itch Medications Current Inpatient Medications Medications (Trade) Dose Ordered Sig/Mayuri Route Start Time Stop Time Status Last Admin Dose Admin Calcium Gluconate 1000 mg/Sodium Chloride 60 ml @ 240 mls/hr TODAY@1429 IV 03/24/17 14:29 03/24/17 18:00 03/23/17 14:49 240 MLS/HR Calcium Gluconate 61682 mg/Sodium Chloride 1,110 ml @ 50 mls/hr [id number] IV 03/23/17 15:15 04/22/17 15:14 03/24/17 13:34 50 MLS/HR Enoxaparin Sodium (Lovenox Inj) 40 mg Q24H SC 03/23/17 18:00 04/22/17 17:59 03/23/17 18:39 40 MG Acetaminophen (Tylenol Tab) 650 mg Q4H PRN PO 03/23/17 15:45 04/22/17 15:44 Magnesium Hydroxide (Milk Of Magnesia Susp) 30 ml Q12H PRN PO 03/23/17 15:45 04/22/17 15:44 Ondansetron HCl (Zofran Inj) 4 mg Q6H PRN IV 03/23/17 15:45 04/22/17 15:44 Calcitriol (Rocaltrol Cap) 1 mcg BID PO 03/23/17 21:00 04/22/17 20:59 03/24/17 08:09 1 MCG Potassium/ Phosphorus/Sodium (Phospha 250 Neutral 155-852-130 Mg) 2 tab QID PO 03/23/17 17:00 04/22/17 16:59 03/24/17 12:52 2 TAB Lorazepam (Ativan Tab) 0.5 mg Q4H PRN PO 03/23/17 16:00 04/22/17 15:59 Calcium Gluconate 1000 mg/Sodium Chloride 60 ml @ 240 mls/hr Q4H PRN IV 03/23/17 19:45 04/22/17 19:44 Paroxetine HCl (pAXil TAB) 20 mg QAM PO 03/25/17 09:00 04/24/17 08:59 Calcium Carbonate (Tums Chew Tab) 1,000 mg BID PO 03/24/17 21:00 04/23/17 20:59 Objective Vital Signs Date Time Temp Pulse Resp B/P (MAP) Pulse Ox O2 Delivery O2 Flow Rate FiO2 03/24/17 12:00 Room Air 03/24/17 11:34 36.6 75 16 123/82 (96) 98 03/24/17 08:00 Room Air 03/24/17 07:21 36.9 69 16 107/68 (81) 97 03/24/17 04:38 36.5 74 18 110/69 (83) 98 Room Air 03/24/17 04:00 Room Air 03/24/17 00:00 Room Air 03/23/17 23:56 36.4 72 18 120/73 (89) 97 Room Air 03/23/17 22:02 36.5 76 16 116/74 Room Air 03/23/17 20:08 36.5 76 16 116/74 (88) 99 Room Air 03/23/17 16:20 36.8 72 18 130/80 (97) 99 Room Air 03/23/17 16:13 80 18 131/75 98 03/23/17 15:30 81 18 129/82 98 Room Air 03/23/17 15:00 73 18 127/73 98 Room Air 03/23/17 14:26 79 20 128/76 100 Room Air 03/23/17 14:17 84 03/23/17 14:15 100 Room Air 03/23/17 13:54 36.8 90 20 127/79 93 Room Air Physical Exam General Appearance: WD/WN, no apparent distress Eyes: normal inspection, PERRL, EOMI Neck: supple, no adenopathy Respiratory/Chest: lungs clear, normal breath sounds, no respiratory distress Cardiovascular: regular rate, rhythm, no murmur Abdomen: normal bowel sounds, non tender, soft Neurologic/Psychiatric: alert, normal mood/affect, oriented x 3 Skin: normal color, warm/dry Laboratory Results Results Past 24 Hours Test 03/24/17 07:00 03/24/17 10:45 03/24/17 15:47 Range/Units Sodium Level 141 141 142 136-145 mmol/L Potassium Level 4.0 3.9 4.1 3.5-5.1 mmol/L Chloride Level 107 104 105 98-107 mmol/L Carbon Dioxide Level 27 30 28 21-32 mmol/L Anion Gap 7.0 7.0 9.0 3-11 mmol/L Blood Urea Nitrogen 11 12 13 7-18 mg/dl Creatinine 0.56 0.77 0.70 0.60-1.40 mg/dl Est Creatinine Clear Calc Drug Dose 185.0 134.6 148.1 ml/min Estimated GFR () > 150.0 148.2 > 150.0 Estimated GFR (Non- 145.8 127.9 133.0 BUN/Creatinine Ratio 20.4 16.0 17.9 10-20 Random Glucose 79 80 95 70-99 mg/dl Calcium Level 7.0 7.8 7.4 8.5-10.1 mg/dl Phosphorus Level 2.8 2.5-4.9 mg/dl Magnesium Level 1.7 1.7 1.8-2.4 mg/dl Total Bilirubin 0.7 0.2-1 mg/dl Direct Bilirubin 0.2 0-0.2 mg/dl Aspartate Amino Transf (AST/SGOT) 17 15-37 U/L Alanine Aminotransferase (ALT/SGPT) 23 12-78 U/L Alkaline Phosphatase 207 45-117 U/L Total Protein 7.4 6.4-8.2 gm/dl Albumin 4.1 3.4-5.0 gm/dl Ionized Calcium 0.91 1.12-1.32 mmol/l Assessment and Plan 21 yo M hx of Familial x-linked hypophosphatemic vitamin D refractory rickets s/ p parathyroidectomy (03/21/17) p/w tetany, paresthesia secondary to hypocalcemia , clinically improving with electrolyte repletion Severe Electrolyte disturbance - symptomatic Hypocalcemia,Hypomagnesemia,Hypophosphatemia -clinically improving, intermittent spasms but much improved remains Hypocalcemic,Hypomagnesemic, Phos level wnl -Continue to closely monitor calcium and magnesium levels and replace - IV and PO. -Continue Calcitrol, Kphos replacement -Repeat PRP, MG, Phos s/p Parathyroidectomy (03/21/17) - surgical site healthy GERD -Maalox PRN Depression/Anxiety -Restart home Paroxetine 20 mg daily DVT prophylaxis -Lovenox Continued [facility] stay due to: other (electrolyte abnormalities) Discharge planning: home Resident Tracking Resident Involvement: Resident Care Provided Care Provided: Adult Hospital Medicine Reviewed: Pt Seen/Exam by Me History numbness/tingling in hands and feet better but still present off and on Constitutional: denies: fever Respiratory: negative: short of breath Cardiovascular: denies chest pain General Appearance: no apparent distress Neck: other (surgical site healthy) Respiratory: lungs clear, no respiratory distress Cardiovascular: regular rate, rhythm Neurologic/Psychiatric: alert, oriented x 3 Skin Characteristics: warm/dry Assessment/Plan Resident Physician Supervision Note: I independently interviewed and examined the patient and verified the fitzgerald history and physical, reviewed labs and image studies, discussed the case with the resident Dr. Woodall and agree with the findings and care plan.
[2017-03-24] MEDS ORDERED: CALCIUM GLUCONATE 10% 1,000 MG in SODIUM CHLORIDE 0.9% 50ML 50 ML IV SCH (14:29)
[2017-03-24 15:20] VITALS: BP 110/69; PULSE 76; TEMP 36.5; O2SAT 99
[2017-03-24 16:22] LABS: BLOOD UREA NITROGEN 13 mg/dl (7-18); BUN/CREATININE RATIO 17.9 (10-20); CALCIUM 7.4 mg/dl (8.5-10.1); CARBON DIOXIDE 28 mmol/L (21-32); CHLORIDE 105 mmol/L (98-107); GLUCOSE 95 mg/dl (70-99); MAGNESIUM 1.7 mg/dl (1.8-2.4); POTASSIUM 4.1 mmol/L (3.5-5.1); SODIUM 142 mmol/L (136-145)
[2017-03-24] MEDS: ENOXAPARIN 40 MG/0.4 ML SYR SC SCH (17:29)
[2017-03-24] MEDS ORDERED: CALCIUM CARBONATE 500 MG CHEWABLE PO STA (18:23)
[2017-03-24 18:54] VITALS: BP 111/73; PULSE 73; TEMP 36.6; O2SAT 95
[2017-03-24] MEDS: CALCIUM CARBONATE 500 MG CHEWABLE PO SCH (20:45)
[2017-03-24 23:47] VITALS: BP 106/69; PULSE 84; TEMP 36.5; O2SAT 97
[2017-03-25 04:14] VITALS: BP 116/60; PULSE 80; TEMP 36.7; O2SAT 94
[2017-03-25] MEDS: CALCIUM CARBONATE 500 MG CHEWABLE PO SCH (07:27)
[2017-03-25] MEDS: CALCITRIOL 0.25 MCG CAP PO SCH (07:28)
[2017-03-25] MEDS: POT PHOSPHATE MONOBASIC W/ SOD TAB PO SCH ×3 (07:28→16:19)
[2017-03-25 07:54] VITALS: BP 112/71; PULSE 77; TEMP 36.5; O2SAT 98
[2017-03-25 08:19] LABS: BLOOD UREA NITROGEN 10 mg/dl (7-18); BUN/CREATININE RATIO 15.8 (10-20); CALCIUM 7.3 mg/dl (8.5-10.1); CARBON DIOXIDE 27 mmol/L (21-32); CHLORIDE 104 mmol/L (98-107); CREATININE 0.65 mg/dl (0.60-1.40); GLUCOSE 83 mg/dl (70-99); PHOSPHORUS 3.1 mg/dl (2.5-4.9); POTASSIUM 3.4 mmol/L (3.5-5.1); SODIUM 140 mmol/L (136-145)
[2017-03-25] MEDS ORDERED: MAGNESIUM OXIDE 400 MG TAB PO STA (08:55)
[2017-03-25] MEDS ORDERED: CALCIUM CARBONATE 500 MG CHEWABLE PO STA (08:55)
[2017-03-25] MEDS ORDERED: PAROXETINE 20 MG TAB PO SCH (09:00)
--- NOTE | 2017-03-25 09:31 | Family Medicine Progress Note ---
Progress Note Date of Service Mar 25, 2017. Subjective Pt evaluation today including: conversation w/ patient, physical exam, chart review, lab review, review of studies, review of inpatient medication list Pain: denies PO Intake: adequate Voiding: no voiding problems No acute events. Denies further spasms or paresthesia Additional Comments: Constitutional: No fever, No chills ENT: No sore throat, No trouble swallowing Respiratory: No cough, No sputum, No shortness of breath Cardiovascular: No chest pain, No edema, No palpitations Abdomen: No pain, No nausea, No vomiting Musculoskeletal: no muscle pains Neurological: no numbness weakness or tingling Male : No dysuria, No urinary frequency Skin: No rash, No itch Medications Current Inpatient Medications Medications (Trade) Dose Ordered Sig/Mayuri Route Start Time Stop Time Status Last Admin Dose Admin Calcium Gluconate 91543 mg/Sodium Chloride 1,110 ml @ 50 mls/hr [id number] IV 03/23/17 15:15 04/22/17 15:14 03/24/17 13:34 50 MLS/HR Enoxaparin Sodium (Lovenox Inj) 40 mg Q24H SC 03/23/17 18:00 04/22/17 17:59 03/24/17 17:29 40 MG Acetaminophen (Tylenol Tab) 650 mg Q4H PRN PO 03/23/17 15:45 04/22/17 15:44 Magnesium Hydroxide (Milk Of Magnesia Susp) 30 ml Q12H PRN PO 03/23/17 15:45 04/22/17 15:44 Ondansetron HCl (Zofran Inj) 4 mg Q6H PRN IV 03/23/17 15:45 04/22/17 15:44 Calcitriol (Rocaltrol Cap) 1 mcg BID PO 03/23/17 21:00 04/22/17 20:59 03/25/17 07:28 1 MCG Potassium/ Phosphorus/Sodium (Phospha 250 Neutral 155-852-130 Mg) 2 tab QID PO 03/23/17 17:00 04/22/17 16:59 03/25/17 07:28 2 TAB Lorazepam (Ativan Tab) 0.5 mg Q4H PRN PO 03/23/17 16:00 04/22/17 15:59 Calcium Gluconate 1000 mg/Sodium Chloride 60 ml @ 240 mls/hr Q4H PRN IV 03/23/17 19:45 04/22/17 19:44 Paroxetine HCl (pAXil TAB) 20 mg QAM PO 03/25/17 09:00 04/24/17 08:59 03/25/17 07:28 20 MG Calcium Carbonate (Tums Chew Tab) 1,000 mg BID PO 03/24/17 21:00 04/23/17 20:59 03/25/17 07:27 1,000 MG Objective Vital Signs Date Time Temp Pulse Resp B/P (MAP) Pulse Ox O2 Delivery O2 Flow Rate FiO2 03/25/17 08:00 Room Air 03/25/17 07:54 36.5 77 18 112/71 (85) 98 03/25/17 04:14 36.7 80 18 116/60 (78) 94 Room Air 03/25/17 04:00 Room Air 03/25/17 00:00 Room Air 03/24/17 23:47 36.5 84 18 106/69 (81) 97 Room Air 03/24/17 20:00 Room Air 03/24/17 18:54 36.6 73 16 111/73 (86) 95 03/24/17 16:00 Room Air 03/24/17 15:20 36.5 76 18 110/69 (83) 99 03/24/17 12:00 Room Air 03/24/17 11:34 36.6 75 16 123/82 (96) 98 Physical Exam Notes: General Appearance: WD/WN, no apparent distress Eyes: normal inspection, PERRL, EOMI Neck: supple, no adenopathy Respiratory/Chest: lungs clear, normal breath sounds, no respiratory distress Cardiovascular: regular rate, rhythm, no murmur Abdomen: normal bowel sounds, non tender, soft Neurologic/Psychiatric: alert, normal mood/affect, oriented x 3 Skin: normal color, warm/dry Laboratory Results Results Past 24 Hours Test 03/24/17 10:45 03/24/17 15:47 03/25/17 06:57 Range/Units Sodium Level 141 142 140 136-145 mmol/L Potassium Level 3.9 4.1 3.4 3.5-5.1 mmol/L Chloride Level 104 105 104 98-107 mmol/L Carbon Dioxide Level 30 28 27 21-32 mmol/L Anion Gap 7.0 9.0 8.0 3-11 mmol/L Blood Urea Nitrogen 12 13 10 7-18 mg/dl Creatinine 0.77 0.70 0.65 0.60-1.40 mg/dl Est Creatinine Clear Calc Drug Dose 134.6 148.1 159.5 ml/min Estimated GFR () 148.2 > 150.0 > 150.0 Estimated GFR (Non- 127.9 133.0 137.1 BUN/Creatinine Ratio 16.0 17.9 15.8 10-20 Random Glucose 80 95 83 70-99 mg/dl Calcium Level 7.8 7.4 7.3 8.5-10.1 mg/dl Phosphorus Level 2.8 3.1 2.5-4.9 mg/dl Magnesium Level 1.7 1.7 1.8-2.4 mg/dl Total Bilirubin 0.7 0.2-1 mg/dl Direct Bilirubin 0.2 0-0.2 mg/dl Aspartate Amino Transf (AST/SGOT) 17 15-37 U/L Alanine Aminotransferase (ALT/SGPT) 23 12-78 U/L Alkaline Phosphatase 207 45-117 U/L Total Protein 7.4 6.4-8.2 gm/dl Albumin 4.1 3.4-5.0 gm/dl Ionized Calcium 0.91 1.12-1.32 mmol/l Assessment and Plan 21 yo M hx of Familial x-linked hypophosphatemic vitamin D refractory rickets s/ p parathyroidectomy (03/21/17) p/w tetany, paresthesia secondary to hypocalcemia , clinically improving with electrolyte repletion Severe Electrolyte disturbance - symptomatic Hypocalcemia,Hypomagnesemia, Hypophosphatemia -clinically improving, intermittent spasms resolved remains Hypocalcemic,Hypomagnesemic, Phos level wnl -Continue to closely monitor calcium and magnesium levels and replace - IV and PO. -Discussed case with Dr. Hernandez: Increased Calcium Carb PO to 1000mgs QID -Continue Calcitrol, K phos replacement -Repeat PRP, MG, Phos s/p Parathyroidectomy (03/21/17) - surgical site healthy GERD -Maalox PRN Depression/Anxiety -Restart home Paroxetine 20 mg daily DVT prophylaxis -Lovenox Continued [facility] stay due to: other (electrolyte abnormalities) Discharge planning: home Resident Tracking Resident Involvement: Resident Care Provided Care Provided: Adult Hospital Medicine Reviewed: Pt Seen/Exam by Me History no more numbness/tingling Constitutional: denies: fever Respiratory: negative: short of breath Cardiovascular: denies chest pain Neurological/Psych: negative: anxiety, depressed General Appearance: no apparent distress Respiratory: lungs clear, no respiratory distress Cardiovascular: regular rate, rhythm Neurologic/Psychiatric: alert, normal mood/affect, oriented x 3 Skin Characteristics: warm/dry Assessment/Plan Resident Physician Supervision Note: I independently interviewed and examined the patient and verified the fitzgerald history and physical, reviewed labs and image studies, discussed the case with the resident Dr. Woodall and agree with the findings and care plan.
[2017-03-25 11:07] VITALS: BP 109/63; PULSE 68; TEMP 36.7; O2SAT 97
[2017-03-25] MEDS: CALCIUM GLUCONATE 10% 11,000 MG in SODIUM CHLORIDE 0.9% 1000ML 1,000 ML IV SCH (11:25)
[2017-03-25 15:30] VITALS: BP 128/74; PULSE 77; TEMP 36.8; O2SAT 96
[2017-03-25] MEDS ORDERED: CALCIUM CARBONATE 1250MG TAB PO SCH ×2 (16:00→16:15)
[2017-03-25] MEDS ORDERED: CALCIUM CARBONATE 500 MG CHEWABLE PO SCH (17:00)
[2017-03-25] MEDS: ENOXAPARIN 40 MG/0.4 ML SYR SC SCH (17:43)
[2017-03-25 19:10] VITALS: BP 103/69; PULSE 84; TEMP 36.6; O2SAT 98
--- NOTE | 2017-03-26 20:16 | Discharge Summary ---
Discharge Summary Date of Service Mar 26, 2017. Discharge Summary Admission Date: Mar 23, 2017 at 15:38 Discharge Disposition: Home Principal Diagnosis: Symptomatic Hypocalcemia Problems/Secondary Diagnoses: s/p Parathyroidectomy Hypomagnesemia Hypophosphatemia Discharge Exam Review of Systems: Constitutional: No fever, No chills Respiratory: No shortness of breath Cardiovascular: No chest pain, No palpitations Abdomen: + diarrhea, No pain, No nausea, No vomiting Genitourinary - Male: No hematuria, No dysuria, No urinary frequency Physical Exam: General Appearance: WD/WN, no apparent distress Eyes: normal inspection, PERRL, EOMI Neck: supple, no adenopathy, trachea midline Respiratory/Chest: lungs clear, normal breath sounds, no respiratory distress Cardiovascular: regular rate, rhythm, no edema, no murmur Abdomen / GI: normal bowel sounds, non tender, soft, no organomegaly Extremities: no pedal edema, non-tender Neurologic/Psychiatric: alert, normal mood/affect, oriented x 3 Skin: normal color, warm/dry Hospital Course H&P Mr. Redd is a 21 year old man here for symptomatic hypocalcemia following parathyroidectomy 03/21 at [facility]. 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 Last night he began to develop symptoms that worsened until today when he presented to the ED. His symptoms included tetany in his hands, numbness in his upper and lower extremities, stiff facial muscles and numb tongue which interfered with his speech, and full body muscle spasm. He has had some nausea and little appetite since surgery but no emesis. Course Patient presented to ED with tetany spasms and positive [place] sign. He was found to have hypocalcemia (Ca .89 ionized Ca .91 via istat) and hypokalemia, hypomagnesemia and Hypophosphatemia. He was started on IV Calcium gluconate drip in addition to 2gm IV Magnesium and Neutra-Phos for supplementation and eventually admitted to telemetry. Case was discussed with Dr. Adam( Endocrinology). During admission, repletion of electrolytes via IV/PO continued in addition to calcitriol Kphos recommended by Dr. dAam. Patient showed symptomatic improvement during 3 day admission however on 03/25/17 however the electrolytes were still lower then normal limits. ( Ca 7.3 Mg 1.7) . At the time , the patient was on normal saline witrh a calcium rider IV and had PO 1000 mg calcium carbonate increased to 4 times day after further consultation with Dr. Adam. Patient then decided despite discussion of the risks , decided he wanted to leave the hospital against medical advice. He left the hospital that day and indicated he had clinical appt the following day with Dr. Adam. It was made clear staying in the hospital was in his best interest, but he decided to continue with an Against medical advice departure. Total Time Spent: Less than 30 minutes This includes examination of the patient, discharge planning, medication reconciliation, and communication with other providers. Discharge Instructions Please refer to the electronic Patient Visit Report (Discharge Instructions) for additional information.
== END 2017-03-25 19:10 | disposition left against medical advice (07) | DRG 641 ==
LOC: C.EDB 13:54 → C.MED 15:38 → ENRESERV 15:59
PROVIDERS: ADMIT Internal Medicine; ATTEND Family Medicine
DX: E83.81 Hungry bone syndrome (principal); E83.42 Hypomagnesemia; E83.39 Other disorders of phosphorus metabolism; E87.6 Hypokalemia; K21.9 Gastro-esophageal reflux disease without esophagitis; F32.9 Major depressive disorder, single episode, unspecified; F41.9 Anxiety disorder, unspecified; F17.200 Nicotine dependence, unspecified, uncomplicated; Z79.899 Other long term (current) drug therapy; Z98.890 Other specified postprocedural states

== ENCOUNTER → 2017-03-26 | Outpatient (CLI) | payer BC ==
[~2017-03-26] MED LIST changes: +MAGNESIUM PO; +OYST500T47 PO
[2017-03-26 18:07] LABS: CALCIUM 7.7 mg/dl (8.5-10.1)
[2017-03-26 18:11] LABS: PHOSPHORUS 3.5 mg/dl (2.5-4.9)
== END | disposition home or self-care (01) ==
LOC: C.LAB 17:17
PROVIDERS: ATTEND Internal Medicine Endocrinology, Diabetes & Metabolism
DX: E21.2 Other hyperparathyroidism (principal)